=== PATIENT | female | born 1985 | race Caucasian/White ===

== ENCOUNTER 2021-08-18 07:48 | Inpatient (IN) ==
[2021-08-18] MEDS ORDERED: Oxytocin in LR 20 UNITS/1,000 ML BAG IVPB SCH ×2 (09:00→17:15)
[2021-08-18] MEDS ORDERED: Lactated Ringers 1000 ml BAG 1,000 ML IV SCH ×2 (09:00→18:00)
[2021-08-18 10:17] LABS: ABS Lymphocytes 1.1 10^3/ul (1.0-4.8); ABS Monocytes 0.4 10^3/ul (0-0.8); ABS Neutrophils 5.6 10^3/ul (1.5-7.7); Eosinophil % 0.7 %; Hematocrit 35 % (35-47); Hemoglobin 11.7 g/dL (12.0-16.0); Lymphocyte % 15.3 %; Mean Corpuscular HGB Conc 34 g/dL (31-36); Mean Corpuscular Hemoglobin 29 pg (27-31); Mean Corpuscular Volume 86 fL (80-97); Mean Platelet Volume 8.2 fL (7.4-10.4); Nucleated Red Blood Cells % 0.1; Platelet Count 151 10^3/uL (150-450); Red Blood Count 4.01 10^6 /uL (3.70-4.87); Red Cell Distribution Width 14 % (10-15); White Blood Count 7.1 10^3/uL (3.5-10.8)
[2021-08-18 10:24] LABS: Rapid COVID-19 Molecular Undetected (Undetected)
[2021-08-18 10:42] LABS: Urine Benzodiazepine Screen None Detected (None Detect); Urine Cannabinoids Screen None Detected (None Detect); Urine Opiates Screen None Detected (None Detect)
[2021-08-18] MEDS ORDERED: Dibucaine 1% OINT 28.35 GM TUBE PR PRN (17:17)
[2021-08-18] MEDS ORDERED: Witch Hazel PAD JAR TOPICAL PRN (17:17)
[2021-08-18] MEDS ORDERED: Lidocaine 1% VIAL 10 MG/ML VIAL ONE (20:12)
[2021-08-19 05:58] LABS: ABS Eosinophils 0.1 10^3/ul (0-0.6); ABS Lymphocytes 1.4 10^3/ul (1.0-4.8); ABS Monocytes 0.5 10^3/ul (0-0.8); ABS Neutrophils 5.2 10^3/ul (1.5-7.7); Hematocrit 29 % (35-47); Hemoglobin 9.7 g/dL (12.0-16.0); Lymphocyte % 19.8 %; Mean Corpuscular HGB Conc 33 g/dL (31-36); Mean Corpuscular Hemoglobin 29 pg (27-31); Mean Corpuscular Volume 86 fL (80-97); Mean Platelet Volume 7.8 fL (7.4-10.4); Nucleated Red Blood Cells % 0.1; Platelet Count 140 10^3/uL (150-450); Red Blood Count 3.39 10^6 /uL (3.70-4.87); Red Cell Distribution Width 15 % (10-15); White Blood Count 7.3 10^3/uL (3.5-10.8)
[2021-08-19 16:25] VITALS: BP 122/59
== END 2021-08-19 18:11 | disposition home or self-care (01) | DRG 768 ==
LOC: MCHOBOUT 07:48 → MCHOB 08:40
PROVIDERS: ADMIT Midwife; ATTEND Midwife

== ENCOUNTER 2024-01-17 00:55 | Inpatient (IN) ==
[2024-01-17] MEDS ORDERED: Lidocaine 1% VIAL 10 MG/ML 30 ML VIAL INJ PRN (01:23)
[2024-01-17 02:03] LABS: Urine Benzodiazepine Screen None Detected (None Detect); Urine Cannabinoids Screen None Detected (None Detect); Urine Opiates Screen None Detected (None Detect)
[2024-01-17] MEDS ORDERED: Lactated Ringers 1000 ml BAG 1,000 ML IV SCH (04:00)
[2024-01-17] MEDS: Oxytocin 10 UNITS/ML 1 ML VIAL ONE (04:07)
[2024-01-17] MEDS: Methylergonovine 0.2 mg AMPULE 1 ml AMP ONE (04:07)
[2024-01-17] MEDS: Oxytocin 10 UNITS/ML 1 ML VIAL IM ONE (04:11)
[2024-01-17] MEDS: Witch Hazel PAD JAR TOPICAL PRN (05:20)
[2024-01-17] MEDS: Dibucaine 1% OINT 28.35 GM TUBE PR PRN (05:20)
[2024-01-18 06:15] LABS: ABS Eosinophils 0.2 10^3/uL (0.0-0.5); ABS Lymphocytes 1.9 10^3/uL (1.0-4.8); ABS Monocytes 0.4 10^3/uL (0.0-0.9); ABS Neutrophils 4.1 10^3/uL (1.5-7.6); ABS Nucleated RBC 0.01 10^3/ul; Eosinophil % 2.3 %; Hematocrit 29.4 % (35-45); Hemoglobin 9.8 g/dL (11.5-14.3); Mean Corpuscular Hgb Conc 33.2 g/dL (31-36); Mean Corpuscular Volume 81.3 fL (80-97); Mean Platelet Volume 8.4 fL (7.5-11.2); Nucleated Red Blood Cells % 0.1 %/100WBC (0.0-0.8); Platelet Count 153 10^3/uL (150-450); Red Blood Count 3.62 10^6/uL (3.63-4.92); Red Cell Distribution Width 15.9 % (12-17); White Blood Count 6.5 10^3/uL (3.8-11.8)
[2024-01-18 07:48] VITALS: BP 120/67
== END 2024-01-18 13:23 | disposition home or self-care (01) | DRG 807 ==
LOC: MCHOBOUT 00:55 → MCHOB 01:22
PROVIDERS: ADMIT Midwife; ATTEND Midwife